=== PATIENT | male | born 1935 | race Caucasian/White ===

== ENCOUNTER → 2017-07-04 | Day surgery (SDC) | payer OTHER, MEDICARE ==
[~2017-07-04] VITALS: Ht 175.3 cm; Wt 86.2 kg
[~2017-07-04] MED LIST: ASPIRIN EC81 M1 PO; ATENOLOL50 M1 PO; COZAAR25 M1 PO; FISH OIL 1,0001 EACH PO; FLOMAX0.4 M1 PO; LEVOTHYROXINE25 MCG PO; MULTIVITAMINS1 EAC9 PO; RED YEAST RICE600 M1 PO; VITAMIN D1000 UNIT PO
[2017-07-04 13:35] LABS: ABSOLUTE BASOPHIL COUNT 0 /CUMM (0.0-0.2); ABSOLUTE EOSINOPHIL COUNT 0.3 /CUMM (0.0-0.7); ABSOLUTE GRANULOCYTE CT 9.6 /CUMM (1.4-6.5); ABSOLUTE LYMPH COUNT 0.7 /CUMM (1.2-3.4); ABSOLUTE MONOCYTE COUNT 0.1 /CUMM (0.10-0.60); BASOPHIL % 0.1 % (0.0-2.0); EOSINOPHIL % 2.5 % (0-5); GRANULOCYTE % 89.7 % (42.2-75.2); HEMATOCRIT 41.5 % (42-52); MEAN CORPUSCULAR HGB 29.8 PG (27.0-31.0); MEAN CORPUSCULAR HGB CONC 33.2 G/DL (33.0-37.0); MEAN CORPUSCULAR VOLUME 89.7 FL (80.0-94.0); MEAN PLATELET VOLUME 10.6 FL (7.4-10.4); PLATELET COUNT 182 /CUMM (130-400); RBC DISTRIBUTION WIDTH 13.5 % (11.5-14.5); RED BLOOD CELL CT 4.63 /CUMM (4.70-6.10); WHITE BLOOD CELL COUNT 10.7 /CUMM (4.8-10.8)
--- NOTE | 2017-07-04 17:48 | Operative Report ---
Operative/Inv Procedure Report Surgery Date: 07/04/17 Name of Procedure: TURP Pre-Operative Diagnosis: BPH Post-Operative Diagnosis: BPH with stones Estimated Blood Loss: scant (150cc) Surgeon/Book Jogger: Juana Pascual MD Anesthesia: laryngeal mask airway Drains: 22Fr 3 way Specimens: prostate chips and bladder stones Complications: unable to visualize ureteral orifices Condition: stable Operative Indication: BPH and failed dual therapy Operative/Procedure Note Note: 81yo male with a hx of BPH. He was given a trial of medical therapy with no improvement. He was consented for TURP after risks, benefits and alternatives given including possible injury to rectum, sphincters, and ureteral orifices. All questions were answered. Patient was taken to the recovery room and placed on the operating table in supine position position. Timeout was performed. IV antibiotics were infused the patient was placed in the dorsolithotomy position. His prepped and draped in the standard sterile fashion cystoscopy was performed and the bladder was globally inspected. He had multiple bladder stones and the ureteral orifices were unable to be located. The resectoscope was then placed with the bipolar loop. The lateral lobes were kissing and they're verumontanum was easily identified. The resection was started on the left lateral lobe at the 3 o'clock position and was carried down to the 6 o'clock position taking care not to go beyond the prostatic capsule or be on the verumontanum. This was done also from the 3 to 12 o'clock position. Prostatic chips were irrigated out with the Ellik evacuator intermittently. Risks arterial bleeds were coagulated as they were encountered. The right lateral lobe was also resected in the same manner starting and 9:00 to o'clock followed by 9 to 12:00. The cystoscope was then placed into the bladder with the 1000 laser fiber. The bladder stones were fragmented to smaller sizes in order to be able to evacuate the fragments. Again the ureteral orifices were not able to be identified. This was due to anatomy and gross hematuria. The rollerball resectoscope the rollerball was then used to cauterize the prostatic bed to achieve hemostasis. There were no more prostatic chips within the bladder or bladder stone fragments. The resectoscope was removed and a 20 Austrian three-way Costello catheter was placed without difficulty. 30 mL of water was placed into the balloon and the three- way irrigation was attached with a Costello bag. Patient tolerated the procedure well. The prostatic chips were sent to pathology and the bladder stone sent for analysis.
== END ==
LOC: STS 02:34
PROVIDERS: Urology
DX: N40.1 Benign prostatic hyperplasia with lower urinary tract symptoms (principal); R33.8 Other retention of urine; R35.0 Frequency of micturition; N21.0 Calculus in bladder; R35.1 Nocturia; E11.65 Type 2 diabetes mellitus with hyperglycemia; Z79.84 Long term (current) use of oral hypoglycemic drugs; I10 Essential (primary) hypertension; E03.9 Hypothyroidism, unspecified; Z87.891 Personal history of nicotine dependence
CPT/HCPCS: 82355; 88305; J0131; J0690